=== PATIENT | female | born 1970 | race Caucasian/White ===

== ENCOUNTER 2021-08-17 23:13 | Emergency (ER) | payer OTHER ==
[~2021-08-17] VITALS: Ht 175.3 cm; Wt 79.4 kg
[2021-08-17 23:20] VITALS: BP 136/63
--- NOTE | 2021-08-17 23:25 | NUR ---
BIBA TO BED 8 WITH C/O LEFT FLANK PAIN X 2 HOURS. H/O KIDNEY STONES 20 YEARS AGO.
--- NOTE | 2021-08-17 23:25 | NUR ---
PT TAKEN TO ER BED 08 VIA EMS
--- NOTE | 2021-08-18 00:15 | NUR ---
ERMD at bedside for medical evaluation.
[2021-08-18] MEDS ORDERED: NACL 0.9% 1,000 ML IV ONE (00:35)
[2021-08-18] MEDS ORDERED: KETOROLAC 30 MG/ML VIAL IVP ONE (00:35)
[2021-08-18] MEDS ORDERED: ONDANSETRON 4 MG/2 ML VIAL IVP ONE (00:35)
[2021-08-18 00:51] LABS: BASOPHILS % (AUTO) 0.2 % (0.0-2.0); EOSINOPHILS % (AUTO) 0.1 % (0.0-4.0); HEMATOCRIT 41.7 % (36-48); HEMOGLOBIN 14.1 g/dL (12.0-16.0); LYMPHOCYTES # (AUTO) 0.8 K/uL (2.5-16.5); LYMPHOCYTES % (AUTO) 8.7 % (20.5-51.1); MEAN CORPUSCULAR HEMOGLOBIN 30 pg (27-31); MEAN CORPUSCULAR HGB CONC 34 g/dL (33-37); MEAN CORPUSCULAR VOLUME 87.4 fL (80-94); MONOCYTES # (AUTO) 0.3 K/uL (0.8-1.0); MONOCYTES % (AUTO) 3.5 % (1.7-9.3); NEUTROPHILS # (AUTO) 7.9 K/uL (1.8-7.7); NEUTROPHILS % (AUTO) 87.5 % (42.2-75.2); PLATELET COUNT (AUTO) 320 K/uL (140-450); RED BLOOD CELL COUNT(AUTO) 4.77 MIL/uL (4.20-5.40); RED CELL DISTRIBUTION WIDTH 13.1 % (11.6-13.7); WHITE BLOOD COUNT (AUTO) 9.1 K/uL (4.8-10.8)
[2021-08-18 01:13] LABS: ALBUMIN 4.3 g/dL (3.4-5.0); CARBON DIOXIDE 27.8 mmol/L (21-32); CREATININE 0.8 mg/dL (0.6-1.3); POTASSIUM 3.8 mmol/L (3.5-5.1); TOTAL BILIRUBIN 0.6 mg/dL (0.0-1.0)
--- NOTE | 2021-08-18 01:30 | NUR ---
PTS PARTNER AT BEDSIDE. PT RESTING
--- NOTE | 2021-08-18 03:05 | NUR ---
Patient appears to be resting comfortably in bed. Vital Signs within normal limits. Respirations even and unlabored.
--- NOTE | 2021-08-18 03:50 | NUR ---
IV removed, catheter intact and site benign. Applied folded 4x4 gauze and tape to stop bleeding.
[2021-08-18 04:00] VITALS: BP 118/70
--- NOTE | 2021-08-18 04:00 | NUR ---
Patient discharged with v/s stable. Written and verbal after care instructions given and explained. Patient verbalized understanding. Ambulatory with steady gait. All questions addressed prior to discharge. Advised to follow up with PMD.
[2021-08-19] MEDS ORDERED: CEPH-588 PO (03:39)
== END 2021-08-18 04:00 | disposition home or self-care (01) ==
LOC: MED 23:13
DX: N39.0 Urinary tract infection, site not specified (principal)
CPT/HCPCS: 36415; 74176; 80053; 81002; 81025; 85025; 96374; 96375; 99284; J1885; J2405; J7030